=== PATIENT | female | born 1995 | race Caucasian/White ===

== ENCOUNTER 2020-04-09 09:25 | Emergency (ER) | payer BC, OTHER ==
[2020-04-09 09:31] VITALS: BP 127/68; PULSE 72; TEMP 97.8; BMI 26.6
--- NOTE | 2020-04-09 09:35 | PDOC ---
Attending Attestation - Resident Resident Name: Umberto Mckeon - HPI HPI: 04/09/20 10:46 Pt presents to the ED complaining of L knee pain after jumping on a trampoline yesterday. Patient did not fall, but states that she "landed funny". Was able to weight bear with difficulty yesterday, but today has worsening pain and is unable to weight bear. - Physicial Exam PE: 04/09/20 11:00 Agree with resident exam. patient is alert and oriented and in no acute distress. LLE: no bruising or deformity, + small suprapatellar effusion, no tenderness over the tibial plateau. pain limited active range of motion ( knee is held in extension, can only flex minimally). Stable anterior and posterior drawer. - Medical Decision Making 04/09/20 11:12 Pt presents to the Ed complaining of R knee pain. Denies other injuries. XRay checked to rule out fracture and appears negative on my read. Most likely ligamentous injury. Will place in knee immobilizer and discharge home with crutches and orthopedic follow up. Discharge - Discharge Information Problems reviewed: Yes Clinical Impression/Diagnosis: Injury of knee, ligament Condition: Stable Disposition: HOME - Follow up/Referral Referrals: Remy Mares DO [Staff Physician] - - Patient Discharge Instructions Patient Printed Discharge Instructions: DI for Anterior Cruciate Ligament Injury Additional Instructions: You came to the ED because of a left knee injury while jumping on trampoline where you felt a pop and weren't able to walk. You have difficulty bending the knee and pain around the joint. Fracture was not seen on Xray. Could possibly be ligament injury such as ACL, MCL, or meniscus. Will need to follow up with an Orthopedic surgeon. Continue to rest it, use ice, elevate the leg, and compre ssion with simona bandages and use tylenol and/or advil/motrin as needed. - Post Discharge Activity Work/Back to School Note: Back to Work
--- NOTE | 2020-04-09 09:41 | PDOC ---
History of Present Illness - General Chief Complaint: Injury Stated Complaint: LEFT KNEE PAIN Time Seen by Provider: 04/09/20 09:33 History Source: Patient Exam Limitations: No Limitations - History of Present Illness Initial Comments: Patient is a 25 year old female with no significant medical history presents to the ED with left knee injury that occurred yesterday while jumping on a trampoline. She did not fall and is not sure of the mechanism but states that she felt a pop with immediate subsequent pain and inability to bear weight. She reports left knee swelling. Denies head injury or any other joint injury. Past History - Medical History Allergies/Adverse Reactions: Allergies Allergy/AdvReac Type Severity Reaction Status Date / Time No Known Allergies Allergy Verified 04/09/20 09:27 Home Medications: Ambulatory Orders NK [No Known Home Medication] 04/09/20 COPD: No Other medical history: pt denies - Psycho-Social/Smoking History Smoking History: Never smoked Have you smoked in the past 12 months: No Information on smoking cessation initiated: No - Substance Abuse Hx (Audit-C & DAST Scrn) How often the patient has a drink containing alcohol: Monthly or less Score: In Men: 4 or > Positive; In Women: 3 or > Positive: 1 Screen Result (Pos requires Nsg. Audit-10AR): Negative In the last yr the pt used illegal drug/Rx for NonMed reason: No Score: Yes response is considered Positive: 0 Screen Result (Positive result requires Nsg. DAST-10): Negative Review of Systems - Review of Systems Able to Perform ROS?: Yes Is the patient limited Icelandic proficient: No Constitutional: No: Chills, Fever Respiratory: No: Cough, Shortness of Breath Cardiac (ROS): No: Chest Pain, Lightheadedness ABD/GI: No: Constipated, Diarrhea, Nausea, Vomiting : No: Dysuria, Frequency Musculoskeletal: Yes: Joint Pain, Joint Swelling Integumentary: Yes: Bruising Neurological: No: Headache, Numbness, Tingling *Physical Exam - Vital Signs Last Vital Signs Temp Pulse Resp BP Pulse Ox 97.8 F 72 18 127/68 100 04/09/20 09:25 04/09/20 09:25 04/09/20 09:25 04/09/20 09:25 04/09/20 09:25 - Physical Exam General Appearance: Yes: Nourished, Appropriately Dressed. No: Apparent Distress HEENT: positive: EOMI, ALONSO Respiratory/Chest: positive: Lungs Clear, Normal Breath Sounds Cardiovascular: positive: Regular Rhythm, Regular Rate, S1, S2 Gastrointestinal/Abdominal: positive: Soft. negative: Tender Musculoskeletal: positive: Decreased Range of Motion Extremity: positive: Swelling, Other (mild joint effusion medial aspect of left knee, inability to actively flex left knee, tenderness at medial>lateral aspect of knee, mild tenderness at patella, no tenderness to tibial plateau, pain with valgus stress test). negative: Normal Range of Motion Integumentary: positive: Dry, Warm Neurologic: positive: Fully Oriented, Alert, Normal Mood/Affect Medical Decision Making - Medical Decision Making 25 year old female presented to the ED with left knee injury that occurred while jumping on trampoline. She felt a pop with inability to bear weight immediately following. She had mild joint swelling with some effusion to medial aspect of knee. She has difficulty with active flexion of knee to 90 degrees and difficulty to bear weight therefore 2 view Xray is justified due to [place] knee rules for fracture r/o. XRay does not appear to demonstrate obvious evidence of fracture. She does not have tibial plateau tenderness. Possible knee ligament injury due to joint effusion and positive valgus stress test. Patient was placed in knee immobilizer and given 600mg motrin. She was counseled on RICE therapy. She will be discharged home and advised to follow up with Orthopedic surgery outpatient within the next few weeks. Discharge - Discharge Information Problems reviewed: Yes Clinical Impression/Diagnosis: Injury of knee, ligament Condition: Stable Disposition: HOME - Admission No - Follow up/Referral Referrals: Remy Mares DO [Staff Physician] - - Patient Discharge Instructions Patient Printed Discharge Instructions: DI for Anterior Cruciate Ligament Injury Additional Instructions: You came to the ED because of a left knee injury while jumping on trampoline where you felt a pop and weren't able to walk. You have difficulty bending the knee and pain around the joint. Fracture was not seen on Xray. Could possibly be ligament injury such as ACL, MCL, or meniscus. Will need to follow up with an Orthopedic surgeon. Continue to rest it, use ice, elevate the leg, and compression with simona bandages and use tylenol and/or advil/motrin as needed. - Post Discharge Activity Work/Back to School Note: Back to Work
[2020-04-09] MEDS ORDERED: IBUPROFEN 600 MG TABLET (FP) PO ONE ×2 (10:11→10:12)
== END 2020-04-09 11:55 | disposition home or self-care (01) ==
LOC: FER 09:25
DX: S83.512A Sprain of anterior cruciate ligament of left knee, initial encounter (principal)
CPT/HCPCS: 73560-TC-LT-FY; 99283-25